=== PATIENT | female | born 1990 | race Two or more races ===

== ENCOUNTER 2021-07-11 06:31 | Inpatient (IN) | payer OTHER ==
[~2021-07-11] VITALS: Ht 167.6 cm; Wt 90.7 kg
[2021-07-11] VITALS (10 sets, daily range): BP systolic 114–132; BP diastolic 68–88
[2021-07-11] MEDS ORDERED: hydrALAZINE HCL 20 MG/ML VL ONE (06:42)
[2021-07-11] MEDS ORDERED: TERBUTALINE SULFATE 1 MG/ML 1ML VIAL SC ONE ×2 (06:59→07:00)
[2021-07-11] MEDS ORDERED: ceFAZolin 1GM/50ML 50 ML IV ONE ×2 (07:00→11:15)
[2021-07-11] MEDS ORDERED: LACTATED RINGER'S 1,000 ML IV ONE (07:00)
[2021-07-11] MEDS ORDERED: AZITHROMYCIN 500MG/ 250ML 250 ML IV ONE (07:15)
[2021-07-11] MEDS ORDERED: ceFAZolin 2 GM in D5W 5% 100 ML IV ONE (07:15)
[2021-07-11 07:19] LABS: Hematocrit 36.2 % (36.0-46.0); Hemoglobin 12.1 g/dL (12.2-16.2); Mean Corpuscular Hemoglobin 29.6 pg (28.0-32.0); Mean Corpuscular Hgb Conc. 33.6 g/dL (32.0-36.0); Mean Corpuscular Volume 88.2 fL (80.0-100.0); Red Blood Cells 4.11 10^6/uL (4.0-5.20); Red Cell Distribution Width 15.4 % (11.8-14.3); White Blood Cell 17.2 10^3/uL (4.4-10.8)
[2021-07-11] MEDS: LACTATED RINGER'S 1,000 ML IV SCH ×4 (07:30→23:13)
[2021-07-11 07:33] LABS: Basophils % (manual) 0 (0.0-2.0); Blast Cells 0; Metamyelocytes % 0; Myelocytes % 0; Promyelocytes % 0; Reactive Lymphocytes 0
[2021-07-11] MEDS ORDERED: fentaNYL CITRATE 100 MCG/2 ML VL ONE (07:33)
[2021-07-11] MEDS ORDERED: MIDAZOLAM HCL 2MG/2ML 2ml VIAL (1mg/ml) ONE (07:33)
[2021-07-11 07:34] LABS: INR 0.97 (0.9-1.15)
[2021-07-11] MEDS ORDERED: oxyTOCIN 10 UNIT/ML 10ML VIAL ONE (07:34)
[2021-07-11] MEDS ORDERED: TETRACAINE 1% INJ 2 ML VIAL IJ ONE (07:35)
[2021-07-11 07:38] LABS: Amphetamine Screen, Urine POSITIVE (NEGATIVE); Barbiturate Scree,Urine NEGATIVE (NEGATIVE); Benzodiazephine Screen, Urine NEGATIVE (NEGATIVE); Cannabinoid Screen, Urine NEGATIVE (NEGATIVE); Cocaine Screen, Urine NEGATIVE (NEGATIVE); Opiate Scree,Urine NEGATIVE (NEGATIVE); Phencyclidine Screen, Urine NEGATIVE (NEGATIVE)
[2021-07-11 07:39] LABS: Albumin 2.4 g/dL (3.4-5.0)
[2021-07-11 07:43] LABS: BUN/Creatinine Ratio 13.6; Bilirubin, Total 0.3 mg/dL (0.2-1.0); Total Protein 5.9 g/dL (6.4-8.2)
[2021-07-11 07:47] LABS: Protein, Urine 80.8 mg/dL (0.0-11.9)
[2021-07-11 07:54] LABS: Urine Bacteria FEW /hpf (None Seen); Urine Blood 3+ /uL (Negative); Urine Hyaline Cast FEW /lpf (0 - 2); Urine Mucus FEW (None Seen); Urine Specific Gravity 1.023 (1.001-1.035); Urine WBC 7 /hpf (0 - 5)
[2021-07-11] MEDS ORDERED: TRANEXAMIC ACID 10 ML ONE (08:02)
[2021-07-11 08:16] LABS: Band Neutrophils % (manual) 4; Eosinophils % (manual) 1 (0-7); Lymphocytes % (manual) 14 (10.0-50.0); Monocytes % (manual) 4 (0-12)
[2021-07-11] MEDS ORDERED: ONDANSETRON HCL 4 MG/2 ML VIAL IV PRN ×2 (09:30→11:15)
[2021-07-11] MEDS ORDERED: ePHEDrine SULFATE 50 MG/ML AMP IV PRN ×2 (09:30→11:15)
[2021-07-11] MEDS ORDERED: MIDAZOLAM HCL 2MG/2ML 2ml VIAL (1mg/ml) IV PRN (09:30)
[2021-07-11] MEDS ORDERED: MORPHINE SULFATE INJECTION 2 MG/ML SYRG IV PRN ×2 (09:30→11:15)
[2021-07-11] MEDS ORDERED: HYDROmorphone HCL 2 MG/ML VL IV PRN (09:30)
[2021-07-11] MEDS ORDERED: LABETALOL HCL 5 MG/ML 4ML SYRINGE IV PRN (09:30)
[2021-07-11] MEDS ORDERED: [UNRECOGNIZED DRUG - CODE] PO (10:24)
[2021-07-11] MEDS ORDERED: GUM (CHEWING) 1 GUM CHEW CHEW ONE (11:15)
[2021-07-11] MEDS: KETOROLAC TROMETH 30 MG/ML 1ML VIAL IV PRN ×2 (13:09→22:39)
[2021-07-11] MEDS: DOCUSATE SOD 100 MG CAP PO SCH (22:36)
[2021-07-11] MEDS: MORPHINE SULFATE INJECTION 2 MG/ML SYRG IV PRN ×2 (23:43→23:53)
[2021-07-12] MEDS: MORPHINE SULFATE INJECTION 2 MG/ML SYRG IV PRN (03:46)
[2021-07-12] MEDS: KETOROLAC TROMETH 30 MG/ML 1ML VIAL IV PRN (04:40)
[2021-07-12] MEDS: IBUPROFEN 600 MG TAB PO SCH ×4 (06:00→21:55)
[2021-07-12] MEDS ORDERED: HYDROcodone-ACET 5/325MG TAB PO PRN (06:00)
[2021-07-12 06:03] LABS: RPR Non Reactive (Non Reactive); Rubella Antibodies, IgG 3.09 index (Immune >0.99)
[2021-07-12 06:49] VITALS: BP 116/65
[2021-07-12 07:14] LABS: Basophils # (auto) 0 10 ^3/uL (0-0.2); Basophils % (auto) 0.2 % (0.0-2.0); Eosinophils # (auto) 0 10 ^3/uL (0-0.8); Eosinophils % (auto) 0.1 % (0.0-7.0); Hematocrit 33.3 % (36.0-46.0); Hemoglobin 11.1 g/dL (12.2-16.2); Lymphocytes # (auto) 1.3 10 ^3/uL (0.4-5.4); Lymphocytes % (auto) 9.9 % (10.0-50.0); Mean Corpuscular Hemoglobin 29.2 pg (28.0-32.0); Mean Corpuscular Hgb Conc. 33.3 g/dL (32.0-36.0); Mean Corpuscular Volume 87.8 fL (80.0-100.0); Monocytes # (auto) 0.7 10 ^3/uL (0-1.3); Monocytes % (auto) 5.4 % (0.0-12.0); Neutrophils # (auto) 11.1 10 ^3/uL (1.6-8.6); Neutrophils % (auto) 84.4 % (37.0-80.0); Nucleated Red Blood Cells % 0.1 %; Red Blood Cells 3.79 10^6/uL (4.0-5.20); Red Cell Distribution Width 15.7 % (11.8-14.3); White Blood Cell 13.2 10^3/uL (4.4-10.8)
[2021-07-12] MEDS: HYDROcodone-ACET 5/325MG TAB PO PRN ×3 (08:19→18:44)
[2021-07-12 10:43] VITALS: BP 111/59
[2021-07-12 15:37] VITALS: BP 133/81
[2021-07-12 19:25] VITALS: BP 127/75
[2021-07-12] MEDS: SIMETHICONE 80 MG CHEWABLE TABLET PO PRN (21:56)
[2021-07-12 23:20] VITALS: BP 115/69
[2021-07-13] MEDS: DOCUSATE SOD 100 MG CAP PO SCH (00:27)
[2021-07-13] MEDS: HYDROcodone-ACET 5/325MG TAB PO PRN ×3 (00:30→10:39)
[2021-07-13 03:00] VITALS: BP 123/61
[2021-07-13] MEDS: IBUPROFEN 600 MG TAB PO SCH (06:35)
[2021-07-13 07:00] VITALS: BP 120/60
[2021-07-13] MEDS: SIMETHICONE 80 MG CHEWABLE TABLET PO PRN (10:37)
[2021-07-13 11:00] VITALS: BP 138/81
== END 2021-07-13 12:52 | disposition home or self-care (01) | DRG 788 ==
LOC: LDRP 06:31 → OBSVTOIN 06:31 → LDRP 21:31
PROVIDERS: ADMIT Obstetrics & Gynecology Obstetrics; ATTEND Obstetrics & Gynecology Obstetrics
PROC: 10D00Z1 Extraction of Products of Conception, Low, Open Approach (ICD-10-PCS; principal; 2021-07-11 07:42)
DX: O77.0 Labor and delivery complicated by meconium in amniotic fluid (principal); O34.211 Maternal care for low transverse scar from previous cesarean delivery; F90.9 Attention-deficit hyperactivity disorder, unspecified type; O99.344 Other mental disorders complicating childbirth; Z20.822 Contact with and (suspected) exposure to COVID-19; Z37.0 Single live birth; Z3A.36 36 weeks gestation of pregnancy
CPT/HCPCS: 36415; 59025; 76805; 80053; 80307; 81001; 81002; 82570; 84156; 84550; 85007; 85025; 85027; 85610; 85730; 86592; 86703; 86762; 86850; 86870; 86880; 86900; 86901; 86905; 86906; 86971; 87340; 87426; 94760; 96360; 96361; 96365; 96366; 96375; G0378; J0690; J1885; J2250; J2590